=== PATIENT | female | born 1950 | race Caucasian/White ===

== ENCOUNTER 2024-06-26 20:58 | Emergency (ER) | payer MEDICARE ==
[2024-06-26] MEDS: Ondansetron 4 MG/2 ML SDV IVPUSH ONE (21:08)
[2024-06-26 21:15] LABS: BASOPHILS ABSOLUTE AUTO 0.01 K/uL (0.00-0.20); BASOPHILS PERCENT AUTO 0.2 % (0.0-2.0); EOSINOPHILS ABSOLUTE AUTO 0.08 K/uL (0.00-0.50); EOSINOPHILS PERCENT AUTO 1.4 % (0.0-5.0); HEMATOCRIT 34.1 % (34.0-46.0); HEMOGLOBIN 11.8 g/dL (11.7-15.5); IMMATURE GRAN ABSOLUTE AUTO 0.01 10^3/uL (0.00-0.04); IMMATURE GRAN PERCENT AUTO 0.2 % (0.0-0.4); LYMPHOCYTES ABSOLUTE AUTO 1.66 K/uL (0.50-3.50); LYMPHOCYTES PERCENT AUTO 29.1 % (10.0-50.0); MEAN CORPUSCULAR HEMOGLOBIN 33.5 pg (28.2-33.3); MEAN CORPUSCULAR HGB CONC 34.6 g/dL (31.7-36.0); MEAN CORPUSCULAR VOLUME 96.9 fL (84.0-98.0); MONOCYTES ABSOLUTE AUTO 0.52 K/uL (0.00-1.00); MONOCYTES PERCENT AUTO 9.1 % (2.0-14.0); NEUTROPHILS ABSOLUTE AUTO 3.43 K/uL (1.40-7.00); PLATELET COUNT,PLT 197 K/uL (150-350); RED BLOOD CELL COUNT 3.52 M/uL (3.77-5.09); RED CELL DISTRIBUTION WIDTH 13.6 % (11.2-14.1); WHITE BLOOD CELL COUNT,WBC 5.7 K/uL (4.0-10.2)
[2024-06-26] MEDS ORDERED: Naloxone 0.4 MG/ML SDV IVPUSH PRN (21:18)
[2024-06-26] MEDS: fentaNYL 50 MCG/ML SDV IVPUSH ONE (21:24)
[2024-06-26 21:33] LABS: ALANINE AMINOTRANSFERASE,ALT 31 U/L (12-78); ALBUMIN 2.9 g/dL (3.4-5.0); ALKALINE PHOSPHATASE 102 IU/L (46-116); ASPARTATE AMNIOTRANSFERASE,AST 25 U/L (15-37); BILIRUBIN TOTAL 0.3 mg/dL (0.2-1.0); BLOOD UREA NITROGEN,BUN 15 mg/dL (7-18); CALCIUM 8.2 mg/dL (8.5-10.1); CARBON DIOXIDE,CO2 26.8 mmol/L (21.0-32.0); CHLORIDE,CL 107 mmol/L (98-107); CREATININE 0.65 mg/dL (0.51-1.17); GLUCOSE RANDOM 125 mg/dL (70-99); PROTEIN TOTAL,TP 6.5 g/dL (6.4-8.2); SODIUM,NA 143 mmol/L (136-145)
[2024-06-26 21:38] LABS: ESTIMATED GFR 93 mL/min (>=60)
[2024-06-26 21:44] LABS: PROTHROMBIN TIME 10.4 SEC (9.0-11.1)
[2024-06-26 21:53] LABS: CORONAVIRUS COVID-19 NAA NEGATIVE (NEGATIVE); INFLUENZA A NAA NEGATIVE (NEGATIVE); INFLUENZA B NAA NEGATIVE (NEGATIVE); RESPIRATORY SYNCYTIAL VIR NAA NEGATIVE (NEGATIVE)
[2024-06-26 21:54] LABS: POTASSIUM,K 2.8 mmol/L (3.5-5.1)
[2024-06-26] MEDS: Prochlorperazine 10 MG/2 ML SDV IVPUSH ONE (22:00)
[2024-06-26] MEDS: Potassium Chloride Riders 10 MEQ in Premix Bag 1 BAG IV SCH (22:05)
[2024-06-26] MEDS: Potassium Bicarbonate/Cit Ac 20 MEQ Effervescent Tab PO ONE ×2 (22:29→23:42)
[2024-06-26] MEDS: Potassium Bicarbonate/Cit Ac 20 MEQ Effervescent Tab ONE (23:48)
[2024-06-26] MEDS: LORazepam 1 MG Tab PO ONE (23:51)
[2024-06-26] MEDS: Metoclopramide 10 MG Tab PO ONE (23:58)
[2024-06-26] MEDS: Metoclopramide 10 MG/2 ML SDV IVPUSH ONE (23:58)
[2024-06-27] MEDS: fentaNYL 50 MCG/ML SDV IVPUSH ONE (00:24)
[2024-06-27] MEDS ORDERED: fentaNYL 50 MCG/ML SDV IVPUSH PRN (02:17)
[2024-06-27] MEDS ORDERED: Ondansetron 4 MG/2 ML SDV IVPUSH PRN (05:00)
[2024-06-27] MEDS ORDERED: LORazepam 2 MG/ML SDV IVPUSH PRN (05:50)
== END 2024-06-27 05:40 ==
LOC: LL.ED 20:58
DX: K56.600 Partial intestinal obstruction, unspecified as to cause (principal); E87.6 Hypokalemia; C78.6 Secondary malignant neoplasm of retroperitoneum and peritoneum; C80.1 Malignant (primary) neoplasm, unspecified; Z79.899 Other long term (current) drug therapy
CPT/HCPCS: 0241U; 36415; 74176; 80053; 83735; 84132; 85025; 85610; 96365; 96366; 96375; 96376; 99284; 99285-25; A9270-GY; J0780; J2405; J2765; J3010; J3480